=== PATIENT | female | born 1995 | race Caucasian/White ===

== ENCOUNTER 2022-03-25 18:21 | Emergency (ER) | payer BC ==
[~2022-03-25] VITALS: Ht 157.5 cm; Wt 65.8 kg
--- NOTE | 2022-03-25 18:32 | NUR ---
Dr Oseguera at the bedside for MSE.
[2022-03-25] MEDS ORDERED: CEPH500T PO (18:41)
[2022-03-25] MEDS ORDERED: CEphaleXIN 500 MG CAPSULE PO ONE (18:45)
[2022-03-25] MEDS ORDERED: CEphaleXIN 500 MG CAPSULE ONE (18:49)
--- NOTE | 2022-03-25 18:58 | NUR ---
Patient discharged to home in stable condition. Written and verbal after care instructions given. Patient verbalizes understanding of instructions. Stressed follow up or return to ER for worsening s/s. pt ambulated with steady gait. denies pain. AOx4
[2022-03-25 18:59] VITALS: BP 121/62
== END 2022-03-25 19:06 | disposition home or self-care (01) ==
LOC: ER 18:24
DX: S61.011A Laceration without foreign body of right thumb without damage to nail, initial encounter (principal); W26.0XXA Contact with knife, initial encounter; Y93.G9 Activity, other involving cooking and grilling; Y92.89 Other specified places as the place of occurrence of the external cause
CPT/HCPCS: 99283; 12001; J3490; A4663